=== PATIENT | female | born 1950 | race Caucasian/White ===

== ENCOUNTER → 2017-05-18 | Outpatient (CLI) | payer MEDICARE ==
--- NOTE | 2017-05-19 12:56 | XCELERA REPORT ---
[address] [address] Lower Extremity Arterial Evaluation Name: AVA EDWARD Age: 66 yrs Gender: Female : 1950 Patient Status: Outpatient Patient Location: Study Date: 05/18/2017 10:54 AM Procedure: A color flow and duplex scan of the lower extremity arteries was performed bilaterally with velocity and waveform anaylsis. Ankle brachial indicies performed. PPG's performed. 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 Biphasic in the Dorsalis Pedis artery . 0-19% stenosis at the Dorsalis Pedis artery. Ankle Brachial index is 1.1 Ppg's noted in the lateral four, normal waveform, mildy dampened in the great toe. Left Side Arterial Evaluation Normal velocity and triphasic waveforms noted from the Common Femoral artery to the Anterior Tibial artery. Biphasic in the Infrageniculate vessels . 0-19% stenosis at the Infrageniculate vessels. Ankle Brachial index is 1.2 Ppg's noted dampened mildly. Interpretation Summary Mild hemodynamically significant lesions in the bilateral lower extremities, on duplex imaging, at rest. : JULIAN RICHARDSON > Elder Mike
== END ==
LOC: SP 10:45
PROVIDERS: ATTEND Podiatrist Foot & Ankle Surgery
DX: Z01.818 Encounter for other preprocedural examination (principal); I73.9 Peripheral vascular disease, unspecified
CPT/HCPCS: 93925